=== PATIENT | female | born 1975 | race American Indian/Alaskan Native ===

== ENCOUNTER 2018-06-15 10:55 | Outpatient (CLI) | payer OTHER | END 2018-06-15 11:51 | disposition home or self-care (01) | LOC: NST 10:55 | DX: Z34.02 Encounter for supervision of normal first pregnancy, second trimester (principal) ==

== ENCOUNTER 2018-07-06 09:56 | Outpatient (CLI) | payer OTHER | END 2018-07-06 10:53 | disposition home or self-care (01) | LOC: NST 09:56 | DX: Z34.83 Encounter for supervision of other normal pregnancy, third trimester (principal) ==

== ENCOUNTER 2018-07-20 08:36 | Outpatient (CLI) | payer OTHER | END 2018-07-20 09:33 | disposition home or self-care (01) | LOC: NST 08:36 | DX: Z34.83 Encounter for supervision of other normal pregnancy, third trimester (principal) ==

== ENCOUNTER 2018-08-10 10:10 | Outpatient (CLI) | payer OTHER | END 2018-08-10 11:15 | disposition home or self-care (01) | LOC: NST 10:10 | DX: Z34.83 Encounter for supervision of other normal pregnancy, third trimester (principal) ==

== ENCOUNTER 2018-08-11 13:30 | Inpatient (IN) | payer OTHER ==
[~2018-08-11] VITALS: Ht 167.6 cm; Wt 77.1 kg
[2018-08-26] MEDS ORDERED: PRENATAL TABLE1 EAC1 PO (08:22)
== END 2018-08-28 12:59 | DRG 798 ==
LOC: EDBD 13:30 → OB/GYN 08-26 06:40 → LDR 08-26 06:40 → OB/GYN 08-26 13:13
PROVIDERS: ADMIT Obstetrics & Gynecology
PROC: 0UB70ZZ Excision of Bilateral Fallopian Tubes, Open Approach (ICD-10-PCS; 2018-08-26)
PROC: 4A1HXCZ Monitoring of Products of Conception, Cardiac Rate, External Approach (ICD-10-PCS; 2018-08-26)
PROC: 0HQ9XZZ Repair Perineum Skin, External Approach (ICD-10-PCS; 2018-08-26)
PROC: 4A033R1 Measurement of Arterial Saturation, Peripheral, Percutaneous Approach (ICD-10-PCS; 2018-08-26)
PROC: 10E0XZZ Delivery of Products of Conception, External Approach (ICD-10-PCS; principal; 2018-08-26 13:00)
DX: O70.0 First degree perineal laceration during delivery (principal); Z37.0 Single live birth; Z3A.38 38 weeks gestation of pregnancy; Z30.2 Encounter for sterilization

== ENCOUNTER 2018-08-14 11:21 | Outpatient (CLI) | payer OTHER | END 2018-08-14 12:12 | disposition home or self-care (01) | LOC: NST 11:21 | DX: Z34.83 Encounter for supervision of other normal pregnancy, third trimester (principal) ==